=== PATIENT | male | born 1985 | race Caucasian/White ===

== ENCOUNTER 2019-02-28 00:11 | Emergency (ER) | payer OTHER ==
[~2019-02-28] VITALS: Ht 182.9 cm; Wt 72.7 kg
--- NOTE | 2019-02-28 00:27 | NUR ---
PATIENT ADMITS TO METHAMPETHAMINE USE YESTERDAY AND HAVING AN "ALCOHOL PROBLEM" STATES THAT THE HAS A HISTORY OR PTSD, ANXIETY, DEPRESSION, AND NIGHT TERRORS AND HE HASN'T BEEN TAKING HIS MEDICATIONS, BUT DOES NOT KNOW WHAT HIS MEDICATIONS ARE.
[2019-02-28] MEDS ORDERED: OLANZapine **IM** 10 mg inj. IM ONE (01:00)
[2019-02-28] MEDS ORDERED: diphenhydrAMINE 50 mg/ml inj IV ONE (01:00)
[2019-02-28] MEDS ORDERED: LORazepam 2 mg/ml vial IV ONE (01:00)
--- NOTE | 2019-02-28 01:15 | NUR ---
PATIENT MEDICATED WITH BENADRYL AND ATIVAN PER MD ORDER. ZYPREXA HELD AT THIS TIME DUE TO LEVEL OF SEDATION CAUSED BY OTHER 2 MEDICATIONS, MD AWARE.
[2019-02-28 01:20] LABS: URINE AMPHETAMINE SCREEN POSITIVE (Neg); URINE BARBITUATE SCREEN NEGATIVE (Neg); URINE BENZODIAZEPINES SCREEN NEGATIVE (Neg); URINE CANNABINOID SCREEN POSITIVE (Neg); URINE COCAINE SCREEN NEGATIVE (Neg); URINE METHADONE SCREEN NEGATIVE (Neg); URINE OPIATE SCREEN NEGATIVE (Neg); URINE PHENCYCLIDINE SCREEN NEGATIVE (Neg)
--- NOTE | 2019-02-28 01:20 | NUR ---
[place] O2 SATURATION 80% PLACED ON NC @ 2L O2 INCREASE TO 99%
[2019-02-28 01:40] LABS: ALANINE AMINOTRANSFERASE 27 U/L (12-78); ALBUMIN 4.7 G/DL (3.4-5.0); ALBUMIN/GLOBULIN RATIO 1.2 (1.1-1.5); ALKALINE PHOSPHATASE 99 IU/L (46-116); ANION GAP 20 (8-16); ASPARTATE AMINO TRANSFERASE 26 U/L (10-37); BILIRUBIN,TOTAL 2.4 MG/DL (0.1-1.0); BLOOD UREA NITROGEN 25 MG/DL (7-18); BUN/CREATININE RATIO 22.1 (5.4-32.0); CALCIUM 9.6 MG/DL (8.5-10.1); CHLORIDE 99 MMOL/L (99-107); CREATININE 1.13 MG/DL (0.60-1.10); ETHANOL < 0.010 GM/DL (0.0-0.010); GLUCOSE 64 MG/DL (70-104); POTASSIUM 3.4 MMOL/L (3.5-5.1); SODIUM 137 MMOL/L (135-145); TOTAL CARBON DIOXIDE 17.9 MMOL/L (24-32); TOTAL PROTEIN 8.6 G/DL (6.4-8.2); eGFR 75 ML/MIN
[2019-02-28 01:41] LABS: BASOPHILS # (AUTO) 0.1 X10'3 (0-0.2); BASOPHILS % (AUTO) 0.5 % (0-1); EOSINOPHILS % (AUTO) 0.3 % (0-6); HEMATOCRIT 43.5 % (42.0-52.0); HEMOGLOBIN 15.3 g/dl (14.0-17.9); LYMPHOCYTES % (AUTO) 14.1 % (21-51); MEAN CORPUSCULAR HEMOGLOBIN 32.7 PG (27.0-31.0); MEAN CORPUSCULAR HGB CONC 35.3 g/dL (33.0-36.5); MEAN CORPUSCULAR VOLUME 92.7 FL (78-98); MEAN PLATELET VOLUME 9.1 FL (7.4-10.4); MONOCYTES # (AUTO) 1.5 X10'3 (0-0.9); MONOCYTES % (AUTO) 10.4 % (2-12); NEUTROPHILS # (AUTO) 10.7 X10'3 (1.8-7.7); NEUTROPHILS % (AUTO) 74.7 % (42-75); PLATELET COUNT 242 X10'3 (140-440); RED BLOOD COUNT 4.69 X10'6 (4.70-6.10); WHITE BLOOD COUNT 14.4 X10'3 (4.5-11.0)
--- NOTE | 2019-02-28 08:04 | NUR ---
pt resting quietly in bed.
--- NOTE | 2019-02-28 09:11 | NUR ---
resting quietly in bed
--- NOTE | 2019-02-28 10:59 | NUR ---
resting quietly in bed
--- NOTE | 2019-02-28 11:32 | NUR ---
packet faxed to [facility].
--- NOTE | 2019-02-28 12:40 | NUR ---
pt resting in bed quietly.
--- NOTE | 2019-02-28 13:34 | NUR ---
sitting up in bed in room eating lunch. calm.
--- NOTE | 2019-02-28 16:05 | NUR ---
resting quietly in bed.
--- NOTE | 2019-02-28 17:01 | NUR ---
Pt was concerned about an appointment that he had at [facility]. Spoke to Ernesto Lindquist and he states that the appointment today was to talk about funding. The patient may call when he is discharged and set up a new consultation. Pt was informed of this and given the number to contact [facility] upon discharge. Pt verbalized understanding.
--- NOTE | 2019-02-28 17:01 | NUR ---
pt sleeping in bed
[2019-02-28 17:30] VITALS: BP 122/84
--- NOTE | 2019-02-28 18:00 | NUR ---
pt calm and cooperative. [facility] at bedside.
--- NOTE | 2019-02-28 19:59 | NUR ---
Face to Face done over the phone with Korin from [facility] [place].
--- NOTE | 2019-02-28 20:09 | NUR ---
Korin called back from [facility] in [place] and they were needing a TSH and UA on the patient. Once they receive these results, they will evaluate whether patient will be accepted.
[2019-02-28 20:25] LABS: CLARITY,URINE CLEAR (Clear); COLOR,URINE YELLOW (Yellow); GLUCOSE, URINE NEGATIVE (Neg); KETONES,URINE 40 mg/dl (Neg); LEUKOCYTE ESTERASE ,URINE NEGATIVE (Neg); NITRITES, URINE NEGATIVE (Neg); OCCULT BLOOD,URINE NEGATIVE (Neg); PROTEIN,URINE NEGATIVE (Neg); UROBILINOGEN,URINE 0.2 E.U/dL (0.2-1.0)
[2019-02-28 20:27] LABS: UA COLLECTION TYPE CLN CATCH MIDSTREAM
--- NOTE | 2019-02-28 20:46 | NUR ---
TSH and UA results have been faxed to [facility] in [place]. Transport should be here within the next 10 minutes
--- NOTE | 2019-02-28 21:02 | NUR ---
[facility]ERON FROM [facility] FA DISCONTINUED INTACT . PT BELONGING BROUGHT TO HIM AND A T SHIRT WAS GIVEN TO HIM TO WEAR OFF UNIT SINCE SWEAT SHIRT HAD STRINGS . SECURITY HER TO ESCORT PT AND KERON TO TRANSPORTATION VAN . PT CONG
--- NOTE | 2019-02-28 21:15 | NUR ---
Transport came to pick remover pt to bring him to [facility] in [place]
== END 2019-02-28 21:02 ==
LOC: ER 00:11
DX: F32.9 Major depressive disorder, single episode, unspecified (principal); R07.89 Other chest pain; F15.10 Other stimulant abuse, uncomplicated; F19.10 Other psychoactive substance abuse, uncomplicated; F20.9 Schizophrenia, unspecified; F17.200 Nicotine dependence, unspecified, uncomplicated; F10.99 Alcohol use, unspecified with unspecified alcohol-induced disorder; Y90.9 Presence of alcohol in blood, level not specified
CPT/HCPCS: 36415; 70450; 70486; 71046; 80053; 80305; 80320; 81003; 84443; 85025; 93005; 96374; 96375; 99285; J1200; J2060; J3490

== ENCOUNTER 2020-08-08 20:33 | Emergency (ER) | payer SELFPAY ==
[~2020-08-08] VITALS: Ht 185.4 cm; Wt 69.8 kg
[2020-08-08 21:37] VITALS: BP 145/98
== END 2020-08-08 23:22 | disposition left against medical advice (07) ==
LOC: ER 20:34
DX: F41.9 Anxiety disorder, unspecified (principal); Z53.21 Procedure and treatment not carried out due to patient leaving prior to being seen by health care provider

== ENCOUNTER 2020-08-08 23:41 | Emergency (ER) | payer MEDICAID, SELFPAY ==
[~2020-08-08] VITALS: Ht 182.9 cm; Wt 72.7 kg
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
[2020-08-09] MEDS ORDERED: LORazepam 1 MG tablet PO ONE (01:30)
[2020-08-09] MEDS ORDERED: OLANZapine 5mg rapidly disint. tablet PO ONE (01:30)
[2020-08-09 03:49] LABS: ALANINE AMINOTRANSFERASE 24 U/L (12-78); ALBUMIN 4.3 G/DL (3.4-5.0); ALBUMIN/GLOBULIN RATIO 1.3 (1.1-1.5); ALKALINE PHOSPHATASE 85 IU/L (46-116); ANION GAP 15 (8-16); ASPARTATE AMINO TRANSFERASE 15 U/L (10-37); BILIRUBIN,TOTAL 2.5 MG/DL (0.1-1.0); BLOOD UREA NITROGEN 14 MG/DL (7-18); BUN/CREATININE RATIO 15.7 (5.4-32.0); CHLORIDE 104 MMOL/L (99-107); CREATININE 0.89 MG/DL (0.60-1.10); ETHANOL < 0.010 GM/DL (0.0-0.010); GLUCOSE 89 MG/DL (70-104); POTASSIUM 3.3 MMOL/L (3.5-5.1); SODIUM 140 MMOL/L (135-145); TOTAL CARBON DIOXIDE 20.8 MMOL/L (24-32); TOTAL PROTEIN 7.7 G/DL (6.4-8.2); eGFR > 90 ML/MIN
[2020-08-09 03:53] LABS: BASOPHILS % (AUTO) 0.3 % (0-1); EOSINOPHILS # (AUTO) 0.1 X10'3 (0-0.9); EOSINOPHILS % (AUTO) 1.6 % (0-6); HEMATOCRIT 46.1 % (42.0-52.0); HEMOGLOBIN 16.1 g/dl (14.0-17.9); LYMPHOCYTES # (AUTO) 2.1 X10'3 (1.1-4.8); LYMPHOCYTES % (AUTO) 32.8 % (21-51); MEAN CORPUSCULAR HEMOGLOBIN 32.4 PG (27.0-31.0); MEAN CORPUSCULAR HGB CONC 34.9 g/dL (33.0-36.5); MEAN CORPUSCULAR VOLUME 92.9 FL (78-98); MEAN PLATELET VOLUME 8.5 FL (7.4-10.4); MONOCYTES # (AUTO) 0.9 X10'3 (0-0.9); MONOCYTES % (AUTO) 14.6 % (2-12); NEUTROPHILS # (AUTO) 3.3 X10'3 (1.8-7.7); NEUTROPHILS % (AUTO) 50.7 % (42-75); PLATELET COUNT 183 X10'3 (140-440); RED BLOOD COUNT 4.97 X10'6 (4.70-6.10); RED CELL DISTRIBUTION WIDTH 13.8 % (11.5-14.5); WHITE BLOOD COUNT 6.5 X10'3 (4.5-11.0)
--- NOTE | 2020-08-09 03:53 | NUR ---
pt moved to overflow bed 23. pt is cooperative, just wants to sleep.
[2020-08-09 04:18] LABS: URINE AMPHETAMINE SCREEN POSITIVE (Neg); URINE BARBITUATE SCREEN POSITIVE (Neg); URINE BENZODIAZEPINES SCREEN NEGATIVE (Neg); URINE CANNABINOID SCREEN NEGATIVE (Neg); URINE COCAINE SCREEN NEGATIVE (Neg); URINE METHADONE SCREEN NEGATIVE (Neg); URINE OPIATE SCREEN NEGATIVE (Neg); URINE PHENCYCLIDINE SCREEN NEGATIVE (Neg)
[2020-08-09 05:30] VITALS: BP 121/82
--- NOTE | 2020-08-09 05:48 | NUR ---
pt is sleeping, snoring at times.
--- NOTE | 2020-08-09 05:48 | NUR ---
packet sent to [place] office
[2020-08-09 08:14] LABS: CLARITY,URINE CLEAR (Clear); COLOR,URINE YELLOW (Yellow); GLUCOSE, URINE NEGATIVE (Neg); KETONES,URINE >=80 mg/dl (Neg); LEUKOCYTE ESTERASE ,URINE NEGATIVE (Neg); NITRITES, URINE NEGATIVE (Neg); OCCULT BLOOD,URINE NEGATIVE (Neg); PROTEIN,URINE TRACE mg/dl (Neg)
[2020-08-09 08:17] LABS: UA COLLECTION TYPE CLN CATCH MIDSTREAM
[2020-08-09 08:18] LABS: AMORPHOUS PHOSPHATES 1+; BACTERIA,URINE NONE SEEN /HPF (Neg); MUCUS STRANDS FEW /LPF (Neg); RBC,URINE NONE SEEN /HPF (0-2); SQUAMOUS EPITHELIAL CELL,UR FEW /LPF (FEW); WBC,URINE 0-4 /HPF (0-4)
== END 2020-08-09 13:36 | disposition home or self-care (01) ==
LOC: ER 23:41
DX: F15.10 Other stimulant abuse, uncomplicated (principal); Z20.822 Contact with and (suspected) exposure to COVID-19; F22 Delusional disorders; F41.9 Anxiety disorder, unspecified; F20.9 Schizophrenia, unspecified; Z72.89 Other problems related to lifestyle
CPT/HCPCS: 36415; 80053; 80305; 80320; 81001; 85025; 87426; 99284

== ENCOUNTER 2021-12-19 07:23 | Emergency (ER) | payer BC, MEDICAID ==
[~2021-12-19] VITALS: Ht 182.9 cm; Wt 67.2 kg
[2021-12-19 07:31] VITALS: BP 145/98
[2021-12-19] MEDS ORDERED: ibuprofen tablet 400 MG TABLET PO ONE (10:35)
[2021-12-20] MEDS ORDERED: BUSP10TA11 PO (20:34)
[2021-12-20] MEDS ORDERED: ESCI20TA39 PO (20:40)
[2021-12-20] MEDS ORDERED: HALO5TAB PO (20:40)
[2021-12-20] MEDS ORDERED: PRAZ5CAP2 PO (20:40)
== END 2021-12-19 10:44 | disposition home or self-care (01) ==
LOC: ER 07:24
DX: M25.572 Pain in left ankle and joints of left foot (principal); F19.10 Other psychoactive substance abuse, uncomplicated; F99 Mental disorder, not otherwise specified; F17.200 Nicotine dependence, unspecified, uncomplicated; F15.20 Other stimulant dependence, uncomplicated; Z59.00 Homelessness unspecified
CPT/HCPCS: 73610; 99284

== ENCOUNTER 2021-12-19 18:24 | Emergency (ER) | payer BC, MEDICAID ==
[~2021-12-19] VITALS: Ht 182.9 cm; Wt 75.0 kg
--- NOTE | 2021-12-19 18:57 | NUR ---
rachel Orta RN made aware of pt being SI and HI and security on the way.
[2021-12-19 20:28] LABS: BASOPHILS % (AUTO) 0.4 % (0-1); EOSINOPHILS # (AUTO) 0.2 X10'3 (0-0.9); EOSINOPHILS % (AUTO) 2.2 % (0-6); HEMATOCRIT 42.4 % (42.0-52.0); HEMOGLOBIN 14.7 g/dl (14.0-17.9); LYMPHOCYTES # (AUTO) 2.6 X10'3 (1.1-4.8); LYMPHOCYTES % (AUTO) 28.3 % (21-51); MEAN CORPUSCULAR HEMOGLOBIN 31.3 PG (27.0-31.0); MEAN CORPUSCULAR HGB CONC 34.7 g/dL (33.0-36.5); MEAN CORPUSCULAR VOLUME 90.3 FL (78-98); MEAN PLATELET VOLUME 8.1 FL (7.4-10.4); NEUTROPHILS # (AUTO) 5.4 X10'3 (1.8-7.7); NEUTROPHILS % (AUTO) 58.1 % (42-75); PLATELET COUNT 177 X10'3 (140-440); RED BLOOD COUNT 4.69 X10'6 (4.70-6.10); RED CELL DISTRIBUTION WIDTH 12.8 % (11.5-14.5); WHITE BLOOD COUNT 9.3 X10'3 (4.5-11.0)
[2021-12-19 20:28] LABS: CLARITY,URINE CLEAR (Clear); GLUCOSE, URINE NEGATIVE (Neg); KETONES,URINE >=80 mg/dl (Neg); LEUKOCYTE ESTERASE ,URINE NEGATIVE (Neg); NITRITES, URINE NEGATIVE (Neg); OCCULT BLOOD,URINE NEGATIVE (Neg); PROTEIN,URINE TRACE mg/dl (Neg); UROBILINOGEN,URINE 0.2 E.U/dL (0.2-1.0)
[2021-12-19 20:38] LABS: UA COLLECTION TYPE CLN CATCH MIDSTREAM
[2021-12-19 20:39] LABS: ALANINE AMINOTRANSFERASE 46 U/L (12-78); ALBUMIN 4.1 G/DL (3.4-5.0); ALBUMIN/GLOBULIN RATIO 1.1 (1.1-1.5); ALKALINE PHOSPHATASE 167 IU/L (46-116); ANION GAP 15 (8-16); ASPARTATE AMINO TRANSFERASE 30 U/L (10-37); BILIRUBIN,TOTAL 2.5 MG/DL (0.1-1.0); BLOOD UREA NITROGEN 19 MG/DL (7-18); BUN/CREATININE RATIO 22.6 (5.4-32.0); CHLORIDE 104 MMOL/L (99-107); CREATININE 0.84 MG/DL (0.60-1.10); GLUCOSE 76 MG/DL (70-104); POTASSIUM 3.7 MMOL/L (3.5-5.1); SODIUM 139 MMOL/L (135-145); TOTAL CARBON DIOXIDE 20.1 MMOL/L (24-32); TOTAL PROTEIN 7.7 G/DL (6.4-8.2); eGFR > 90 ML/MIN
[2021-12-19 20:39] LABS: COLOR,URINE AMBER (Yellow)
[2021-12-19 20:42] LABS: ETHANOL < 0.010 GM/DL (0.0-0.010)
[2021-12-19 20:43] LABS: BACTERIA,URINE NONE SEEN /HPF (Neg); MUCUS STRANDS MANY /LPF (Neg); RBC,URINE NONE SEEN /HPF (0-2); SQUAMOUS EPITHELIAL CELL,UR FEW /LPF (FEW); WBC,URINE 0-4 /HPF (0-4)
[2021-12-19 20:54] LABS: URINE AMPHETAMINE SCREEN POSITIVE (Neg); URINE BARBITUATE SCREEN POSITIVE (Neg); URINE BENZODIAZEPINES SCREEN NEGATIVE (Neg); URINE CANNABINOID SCREEN NEGATIVE (Neg); URINE COCAINE SCREEN NEGATIVE (Neg); URINE METHADONE SCREEN NEGATIVE (Neg); URINE OPIATE SCREEN NEGATIVE (Neg); URINE PHENCYCLIDINE SCREEN NEGATIVE (Neg)
--- NOTE | 2021-12-19 21:42 | NUR ---
Pt voicing SI and HI, says "they are telling me to jump infront of a car" and "punch people until they ."
--- NOTE | 2021-12-19 22:01 | NUR ---
[facility] packet faxed.
[2021-12-20] MEDS ORDERED: diphenhydrAMINE 25mg capsule PO ONE (02:15)
[2021-12-20] MEDS ORDERED: LORazepam 1 MG tablet PO ONE (02:15)
[2021-12-20] MEDS ORDERED: olanzapine 10mg tablet PO ONE (02:15)
--- NOTE | 2021-12-20 02:15 | NUR ---
Pt pacing around room, very agitiated and verbalizing that he needs medication beofre "hurting himself or someone else". MD notified, new orders for zyprexa, ativan and benadryl. .
--- NOTE | 2021-12-20 14:57 | NUR ---
BENJI CALLED AND ASKED QUESTIONS REGARDING THE PT: MEDICAL, AND MEDICAL HISTORY. I SPOKE WITH HER, AND PROVIDED THE INFORMATION.
[2021-12-20] MEDS ORDERED: LORazepam 1 MG tablet PO STA (18:41)
[2021-12-20] MEDS ORDERED: diphenhydrAMINE 25mg capsule PO STA (18:41)
[2021-12-20] MEDS ORDERED: haloperidol 5mg tablet PO ONE (18:45)
--- NOTE | 2021-12-20 19:53 | NUR ---
Pt arrived on unit approximately 183. Pt stated he is anxious, he was trembling, teeth clenched. Pt endorsed command auditory hallucinations telling him to kill himself. Given PO Ativan, Haldol and Benyadrl per x1 stat order at 185. Pt sleeping at this time resp even and unlabored.
[2021-12-20] MEDS ORDERED: BUSP10TA11 PO (20:34)
[2021-12-20] MEDS ORDERED: ESCI20TA39 PO (20:40)
[2021-12-20] MEDS ORDERED: HALO5TAB PO (20:40)
[2021-12-20] MEDS ORDERED: PRAZ5CAP2 PO (20:40)
[2021-12-20] MEDS ORDERED: prazosin 5mg capsule PO SCH (21:00)
[2021-12-20] MEDS ORDERED: haloperidol 5mg tablet PO SCH (21:00)
--- NOTE | 2021-12-20 21:05 | NUR ---
HS meds held pt medicated earlier sleeping at this time.
--- NOTE | 2021-12-21 01:15 | NUR ---
Pt sleeping resp even and unlabored.
--- NOTE | 2021-12-21 03:18 | NUR ---
Pt sleeping resp even and unlabored.
--- NOTE | 2021-12-21 05:23 | NUR ---
Pt sleeping resp even and unlabored.
--- NOTE | 2021-12-21 07:06 | NUR ---
Pt sleeping comfortably, no respirtions even and unlabored. Addendum: 12/21/21 at 0736 by PHILL Pt reports hard "pebble" stool. Prunce juice given. Will continue to monitor
[2021-12-21] MEDS ORDERED: busPIRone 5mg tablet PO SCH (08:00)
[2021-12-21] MEDS ORDERED: ESCITALOPRAM OXALATE 5 MG TABLET PO SCH (08:00)
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
--- NOTE | 2021-12-21 11:02 | NUR ---
Pt appears to be sleeping, no distress noted.
--- NOTE | 2021-12-21 13:00 | NUR ---
Pt finished lunch, was up to the bathroom and now back in bed sleeping.
--- NOTE | 2021-12-21 13:00 | NUR ---
PT WAS ACCEPTED TO [facility]
--- NOTE | 2021-12-21 15:02 | NUR ---
Pt continues to rest comfortably, respirations even and unlabored.
[2021-12-21 16:19] VITALS: BP 112/74
--- NOTE | 2021-12-21 16:23 | NUR ---
DISCHARGE NOTE Patient left unit at 1616. Pt was escorted to transportation vehicle with [facility] sprinkling truck driver and security. Pt is gong to [facility]. Pt left with personal belongings. Pt was A&Ox4. Pt continues to endorse suicidal thoughts with a plan to jump in front of a train. Pt was calm/cooperative at discharge.
== END 2021-12-21 16:16 ==
LOC: ER 18:25
DX: R44.0 Auditory hallucinations (principal); Z20.822 Contact with and (suspected) exposure to COVID-19; R45.851 Suicidal ideations; F19.10 Other psychoactive substance abuse, uncomplicated; F15.20 Other stimulant dependence, uncomplicated; Z59.00 Homelessness unspecified
CPT/HCPCS: 36415; 73130; 80053; 80305; 80320; 81001; 84443; 85025; 87811; 99285; Q0163

== ENCOUNTER 2021-12-30 19:53 | Emergency (ER) | payer MEDICAID ==
[~2021-12-30] VITALS: Ht 182.9 cm; Wt 76.9 kg
[~2021-12-30 19:53] MED LIST: BUSP10TA11 PO; ESCI20TA39 PO; HALO5TAB PO; PRAZ5CAP2 PO
[2021-12-30 20:08] VITALS: BP 174/115
== END 2021-12-30 23:04 | disposition left against medical advice (07) ==
LOC: ER 19:53
DX: M25.579 Pain in unspecified ankle and joints of unspecified foot (principal); Z53.21 Procedure and treatment not carried out due to patient leaving prior to being seen by health care provider

== ENCOUNTER 2022-01-01 19:11 | Emergency (ER) | payer MEDICAID ==
[~2022-01-01] VITALS: Ht 182.9 cm; Wt 75.2 kg
[2022-01-01 19:32] VITALS: BP 145/92
[2022-01-02] MEDS ORDERED: PRED20TA PO (11:39)
[2022-01-02] MEDS ORDERED: KEN0.1O TP (11:39)
== END 2022-01-01 20:14 | disposition left against medical advice (07) ==
LOC: ER 19:11
DX: M25.572 Pain in left ankle and joints of left foot (principal); Z53.21 Procedure and treatment not carried out due to patient leaving prior to being seen by health care provider

== ENCOUNTER 2022-01-02 11:15 | Emergency (ER) | payer MEDICAID ==
[~2022-01-02] VITALS: Ht 180.3 cm; Wt 75.0 kg
[2022-01-02 11:26] VITALS: BP 128/88
[2022-01-02] MEDS ORDERED: PRED20TA PO (11:39)
[2022-01-02] MEDS ORDERED: KEN0.1O TP (11:39)
[2022-01-03] MEDS ORDERED: HALO5TAB PO (04:54)
[2022-01-03] MEDS ORDERED: BUSP10TA11 PO (04:54)
[2022-01-03] MEDS ORDERED: ESCI20TA39 PO (04:54)
== END 2022-01-02 12:10 | disposition home or self-care (01) ==
LOC: ER 11:15
DX: L23.9 Allergic contact dermatitis, unspecified cause (principal); F15.90 Other stimulant use, unspecified, uncomplicated; F41.9 Anxiety disorder, unspecified; F32.9 Major depressive disorder, single episode, unspecified; F20.9 Schizophrenia, unspecified
CPT/HCPCS: 99282; 99283

== ENCOUNTER 2022-01-03 00:55 | Emergency (ER) | payer MEDICAID ==
[~2022-01-03] VITALS: Ht 182.9 cm; Wt 72.7 kg
[~2022-01-03 00:55] MED LIST changes: +KEN0.1O TP; +PRED20TA PO
[2022-01-03 01:34] VITALS: BP 144/99
--- NOTE | 2022-01-03 04:15 | NUR ---
Here for intermittent confusion r/t addiction issues.
[2022-01-03] MEDS ORDERED: HALO5TAB PO (04:54)
[2022-01-03] MEDS ORDERED: BUSP10TA11 PO (04:54)
[2022-01-03] MEDS ORDERED: ESCI20TA39 PO (04:54)
[2022-01-03] MEDS ORDERED: LORazepam 1 MG tablet PO ONE (04:55)
[2022-01-03] MEDS ORDERED: olanzapine 10mg tablet PO STA (05:03)
[2022-01-03] MEDS ORDERED: OLANZapine 2.5MG tablet PO SCH (08:00)
== END 2022-01-03 05:17 | disposition home or self-care (01) ==
LOC: ER 00:57
DX: F15.10 Other stimulant abuse, uncomplicated (principal); F17.200 Nicotine dependence, unspecified, uncomplicated; Z59.00 Homelessness unspecified
CPT/HCPCS: 99283

== ENCOUNTER 2022-02-17 11:38 | Emergency (ER) | payer MEDICAID ==
[~2022-02-17] VITALS: Ht 182.9 cm; Wt 73.0 kg
[~2022-02-17 11:38] MED LIST changes: -PRED20TA PO
[2022-02-17 12:32] VITALS: BP 141/83
[2022-02-17] MEDS ORDERED: CEPH-585 PO (14:18)
[2022-02-17] MEDS ORDERED: bacitracin 15gm ointment TP ONE (14:20)
== END 2022-02-17 14:44 | disposition home or self-care (01) ==
LOC: ER 11:38
DX: S90.821A Blister (nonthermal), right foot, initial encounter (principal); F31.9 Bipolar disorder, unspecified; F20.9 Schizophrenia, unspecified; F15.10 Other stimulant abuse, uncomplicated; Z59.00 Homelessness unspecified; Z79.899 Other long term (current) drug therapy; Z79.1 Long term (current) use of non-steroidal anti-inflammatories (NSAID); X58.XXXA Exposure to other specified factors, initial encounter; Y93.89 Activity, other specified; Y92.89 Other specified places as the place of occurrence of the external cause; Y99.8 Other external cause status
CPT/HCPCS: 99283; A6449

== ENCOUNTER 2025-03-12 12:25 | Emergency (ER) | payer MEDICAID ==
[~2025-03-12] VITALS: Ht 185.4 cm; Wt 71.2 kg
[2025-03-12 12:45] VITALS: BP 126/87; PULSE 80; RESP 18; O2SAT 99
[2025-03-12] MEDS ORDERED: SULF-16 PO (14:28)
--- NOTE | 2025-03-12 14:28 | Physician Documentation ---
History of Present Illness ~ Chief Complaint: Wound Stated Complaint: OPEN SORES Time Seen by MD: 14:20 Primary Medical Doctor: None HPI 39-year-old male presents to the ED with a complaint of multiple boils on his body starting on the medial aspect of his left leg and he has developed some small areas of infection in is pelvic region additionally he developed one on his lip. Some of them have drained others have not. Proximally 1 cm in size. The patient reports using methamphetamine Day of Onset of Wound: Mar 12, 2025 Tetanus within 5 years?: Yes Medication Reconciliation Allergies: Coded Allergies: No Known Allergies (Unverified , 03/12/25) Scheduled Buspirone Hcl* (Buspar*), 10 MG PO BID Escitalopram Oxalate (Escitalopram Oxalate), 1 TAB PO DAILY Haloperidol (Haloperidol), 2 TAB PO HS Prazosin HCl (Prazosin HCl), 1 CAP PO HS, (Reported) Triamcinolone Acetonide 0.1% Crm* (Kenalog 0.1% Crm*), 1 APPLIC TP TID Past Medical History Past Medical History: Extremity Fracture, Anxiety, Depression, Psychosis, Schiz ophrenia Past Surgical History: no surgical history Alcohol Use: Heavy Drug Use: methamphetamine Lives In: Homeless Review of Systems All Other Systems at this time: Reviewed and Negative ROS As stated above in the HPI, otherwise all systems are reviewed and negative. Physical Exam Vital Signs: Temperature: 97.4, Source: Temporal, Heart Rate: 80, Respiratory Rate: 18, BP: 126/87, Pulse Oximetry: 99, Weight: 71.200 Oxygen Flow Rate: 0 Physical Exam General: Alert, no apparent distress. Respiratory: Lungs clear, no respiratory distress. Neurologic: Oriented x4. Psychiatric: Normal mood and affect. Skin: There are several areas where small abscesses with surrounding erythema have developed on the patient's left lower extremity pelvic region and his lip. No areas with gross fluctuance Progress Results/Orders Results/Orders Orders - SABAS BARRERA ROUTE SERVICE REPRESENTATIVE Ceftriaxone Im Kit W/Lidocaine (Rocephin (03/12/25 14:25) Vital Signs 03/12/25 12:45 Temp 97.4 Pulse 80 Resp 18 B/P (MAP) 126/87 Pulse Ox 99 O2 Flow Rate 0 Medical Decision Making Additional information obtaine: old records Findings Does not have any abscesses that I appreciate and eating I and D. we will place him on oral antibiotics with a starting dose of an IM Rocephin. I do suspect MRSA based on his history Differential Dx:Considerations: Include: Abscess, Cellulitis, Dressing change, Healing wound, Other Departure Disposition: 01 HOME / SELF CARE / HOMELESS Impression: Primary Impression: Wound cellulitis Additional Impression: Abscess Condition: Improved Discharge Instructions: Skin Abscess Referrals: NO PRIMARY CARE PROVIDER (PCP) Prescriptions Sulfamethoxazole/Trimethoprim (Septra Ds Tab) 800 Mg/160 Mg Tablet 1 TAB PO Q12H for 10 Days, #20 TAB Prov: SABAS BARRERA NP 03/12/25 Signature Scribe Signature: rosi Attestation: Scribed for Sabas Barrera Stave Saw Operator by Sabas Barrera - RATNA . 03/12/25 14:28 SABAS BARRERA NP Mar 12, 2025 14:28
[2025-03-12] MEDS: CefTRIAXone 1000mg IM Kit (w/lidocaine diluent) IM ONE (14:40)
[2025-03-12 15:21] VITALS: TEMP 97.4
== END 2025-03-12 15:21 | disposition home or self-care (01) ==
LOC: ER 12:25
DX: K65.1 Peritoneal abscess (principal); K65.0 Generalized (acute) peritonitis; F15.90 Other stimulant use, unspecified, uncomplicated; F41.9 Anxiety disorder, unspecified; F32.A Depression, unspecified; F20.9 Schizophrenia, unspecified; Z79.899 Other long term (current) drug therapy; Z59.00 Homelessness unspecified
CPT/HCPCS: 96372; 99283; J0696